=== PATIENT | male | born 1995 ===

== ENCOUNTER 2017-02-26 03:39 | Emergency (ER) | payer OTHER ==
[2017-02-26 04:03] VITALS: BP 125/70
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
[2017-02-26] MEDS ORDERED: POLYTRIM EYE DR10 ML OPH (04:30)
== END 2017-02-26 05:03 ==
LOC: ERH 03:39
DX: S05.02XA Injury of conjunctiva and corneal abrasion without foreign body, left eye, initial encounter (principal); V40.5XXA Car driver injured in collision with pedestrian or animal in traffic accident, initial encounter; Y92.488 Other paved roadways as the place of occurrence of the external cause